=== PATIENT | male | born 1950 | race Caucasian/White ===

== ENCOUNTER 2016-10-29 10:53 | Outpatient (CLI) | payer MEDICARE, OTHER ==
[~2016-10-29] VITALS: Ht 180.3 cm; Wt 83.1 kg
[2016-10-29] MEDS ORDERED: TIMO5DRO5 OP (11:48)
[2016-10-29] MEDS ORDERED: CETI10TA17 PO (11:48)
[2016-10-29] MEDS ORDERED: OLME20TA24 PO (11:48)
[2016-10-29 11:54] VITALS: BP 119/71
== END 2016-10-29 12:18 | disposition home or self-care (01) ==
LOC: PREOP 10:53
PROVIDERS: ATTEND Urology
DX: Z01.818 Encounter for other preprocedural examination (principal); Z11.2 Encounter for screening for other bacterial diseases; N20.1 Calculus of ureter
CPT/HCPCS: 87081

== ENCOUNTER 2016-10-31 06:58 | Day surgery (SDC) | payer MEDICARE, OTHER ==
[~2016-10-31] VITALS: Ht 180.3 cm; Wt 83.1 kg
[~2016-10-31 06:58] MED LIST: CETI10TA17 PO; OLME20TA24 PO; TIMO5DRO5 OP
[2016-10-31 07:00] VITALS: BP 115/63
--- NOTE | 2016-10-31 07:06 | Progress Note-Pre Operative ---
Pre-Operative Progress Note H&P Reviewed The H&P was reviewed, patient examined and no changes noted. Date Seen by Provider: Oct 31, 2016 Time Seen by Provider: 07:06 Date H&P Reviewed: Oct 31, 2016 Time H&P Reviewed: 07:06 Pre-Operative Diagnosis: LT URETERAL STONE BENJY ARELLANO MD Oct 31, 2016 7:06 am
[2016-10-31] MEDS ORDERED: CATHETER FLUSH 10 ML SYR IV PRN (07:30)
[2016-10-31] MEDS ORDERED: cefTRIAXone 1 GM/NS 50 ML IVPB IV ONE ×2 (07:30)
[2016-10-31] MEDS: LACTATED RINGERS 1,000 ML IV PRN ×2 (07:55→10:50)
--- NOTE | 2016-10-31 08:00 | Diagnostic Imaging Report ---
INDICATION: Preop left ESWL. KUB obtained at 8:00 hours a.m. There is no previous study for comparison. The abdominal bowel gas pattern is unremarkable. There are no definitive calculi overlying the renal shadows although there is partial obscuration due to overlying stool and bowel gas. There are surgical clips and sutures in the pelvis. Bony structures appear unremarkable. IMPRESSION: There is some residual stool in the colon but no overt bowel obstruction. There are postop changes in the pelvis. There are no overt radiopaque calculi. Dictated by: Dictated on workstation # [id number]
[2016-10-31] MEDS ORDERED: LACTATED RINGERS 1,000 ML IV ONE (08:26)
[2016-10-31] MEDS ORDERED: LIDOCAINE PF 2% 5 ML (XYLOCAINE) VIAL ONE (08:26)
[2016-10-31] MEDS ORDERED: proPOfol 200 MG/20 ML (DIPRIVAN) VIAL IV ONE (08:26)
[2016-10-31] MEDS ORDERED: SEVOFLURANE (ULTANE) 15 ML INHAL SOLN ONE (08:26)
[2016-10-31] MEDS ORDERED: fentaNYL INJECTION 100 MCG/2 ML AMP ONE (08:27)
[2016-10-31] MEDS ORDERED: MIDAZOLAM 2 MG/2 ML (VERSED) VIAL ONE (08:28)
--- NOTE | 2016-10-31 10:19 | Progress Note-Post Operative ---
Post-Operative Progess Note Surgeon (s)/Acreage Reporter (s) Surgeon BENJY ARELLANO MD Acreage Reporter: N/A Pre-Operative Diagnosis LT URETERAL STONE Post-Operative Diagnosis SAME Procedure & Operative Findings Date of Procedure 10/31/16 Procedure Performed/Findings CYSTO, LT URETEROSCOPY, INSERTION OF LT URETERAL CATHETER FOR RETROGRADE UROGRAM , AND LT ESWL FOR LT DISTAL URETERAL STONE Anesthesia Type GENERAL Estimated Blood Loss Estimated blood loss (mL): N/A Specimens/Packing Specimens Removed N/A Packing: N/A BENJY ARELLANO MD Oct 31, 2016 10:19 am
--- NOTE | 2016-10-31 10:21 | Discharge Inst-Urology ---
Discharge Inst-Urology Discharge Medications New, Converted, or Re-newed RX: RX on Chart Patient Instructions/Follow Up Plan Patient to make appointment to been seen in office in [facility] OP clinic Sunday 11/[address] Post ESWL instructions Increase oral fluids for 48 hours and then as needed. Diet and Activity as tolerated. If questions or concerns contact your physician Or seek help at emergency department. BENJY ARELLANO MD Oct 31, 2016 10:21
[2016-10-31 11:35] VITALS: BP 113/67
--- NOTE | 2016-10-31 11:37 | OPERATIVE REPORT ---
PROCEDURE PHYSICIAN: BENJY ARELLANO DATE OF PROCEDURE: 10/31/2016 PREOPERATAIVE DIAGNOSIS: Left distal ureteral stone. POSTOPERATIVE DIAGNOSIS: Left distal ureteral stone. OPERATION PERFORMED: 1. Cystoscopy. 2. Left ureteroscopy. 3. Insertion of left ureteral catheter. 4. Retrograde urogram. 5. Left ESWL. ANESTHESIA: General. COMPLICATIONS: None. PROCEDURE: Under satisfactory general anesthesia, the patient in lithotomy position, the genitalia were prepped and draped in the usual sterile fashion. A 21-Ivorian cystoscope met resistance from a distal submeatal stricture. He responded to a 5-Ivorian cystoscope. The urethra was normal. The prostate was nonobstructing. There was a mild median bar. The bladder revealed some trabeculations. Ureteric orifices normal in shape, site and configuration with clear efflux, somewhat sluggish on the left side. Using the Foroblique lens, I dilated the left ureteral orifice, intramural portion to accommodate a 6.9-Ivorian semirigid ureteroscope. However, there was quite a bit of irritation, edema and hyperemia on the wall of the ureter just distal to the stone which did not allow me to see the stone or to pass the ureteroscope safely to the stone. So I discontinued further attempt, removed the ureteroscope. Reinserted the cystoscope, passed a 6-Ivorian ureteral catheter past the stone into the kidney. Then a 16-Ivorian José catheter was inserted after removing the cystoscope and both catheters were taped to each other and the patient was moved to the ESWL table. We visualized the stone, delivered 1000 shocks at KV of 6. We had a hard time seeing the stone at that time, so I backed up the ureteral catheter, injected contrast. There was no filling defect visualized and complete emptying of the ureter after removing the catheter. There was what looked like a residual fragment in the distal ureter and another 1000 shocks were delivered at KV of 6 until we could not see any more calcification fluoroscopic. The patient received 30 mg of Toradol and 40 mg of Lasix IV at the end of the procedure. Catheters were removed. The procedure and anesthesia well and was sent to recovery room in stable condition. Job ID: [id number] Dictated Date: 10/31/2016 10:39:03 Service Desk Technician Date: 10/31/2016 11:19:57 / marino
[2016-10-31] MEDS ORDERED: PHENAZOPYRIDINE 100 MG (PYRIDIUM) TABLET PO ONE (12:00)
[2016-10-31] MEDS ORDERED: HYDROcodone/APAP 5 MG/325 MG (LORTAB) TAB PO PRN (12:00)
[2016-10-31 12:15] VITALS: BP 102/78
[2016-10-31] MEDS ORDERED: TAMS0.4C98 PO (12:17)
[2016-10-31] MEDS ORDERED: LEVO500T2 PO (12:17)
[2016-10-31] MEDS ORDERED: PHEN-640 PO (12:17)
[2016-10-31] MEDS ORDERED: HYDR-3874 PO (12:17)
[2016-10-31 12:50] VITALS: BP 121/70
[2016-10-31 13:10] VITALS: BP 121/70
--- NOTE | 2016-10-31 13:20 | Diagnostic Imaging Report ---
INDICATION: Postop abdominal pain. COMPARISON: Abdominal radiograph of same day at 8 a.m. FINDINGS: Multiple foci of gas are seen throughout the colon and small bowel. Nonobstructive bowel gas pattern is present. No evidence of free intraperitoneal air, though evaluation is limited on supine imaging. Metallic markers in the pelvis are compatible prior herniorrhaphy. There are also surgical clips present in the pelvis. IMPRESSION: 1. Nonobstructive but nonspecific bowel gas pattern. 2. No evidence of free intraperitoneal air, although evaluation is limited on supine imaging. Dictated by: Dictated on workstation # [id number]
== END 2016-10-31 13:10 | disposition home or self-care (01) ==
LOC: SDC 06:58
PROVIDERS: ATTEND Urology
DX: N20.1 Calculus of ureter (principal); I10 Essential (primary) hypertension; G47.33 Obstructive sleep apnea (adult) (pediatric); Z79.899 Other long term (current) drug therapy
CPT/HCPCS: 74000

== ENCOUNTER → 2019-08-27 | Outpatient (CLI) | payer MEDICARE, OTHER ==
[~2019-08-27] MED LIST changes: +HYDR-3870 PO; +LEVO500T2 PO; +PHEN-640 PO; +TMSL.4C PO
--- NOTE | 2019-08-27 18:49 | Diagnostic Imaging Report ---
PROCEDURE: CT abdomen and pelvis without contrast. TECHNIQUE: Multiple contiguous axial images were obtained through the abdomen and pelvis without the use of intravenous contrast. Auto Exposure Controls were utilized during the CT exam to meet ALARA standards for radiation dose reduction. INDICATION: Gross hematuria x4 days. Immediately post cystography. CORRELATION STUDY: None. FINDINGS: LOWER THORAX: Clear. LIVER: Unremarkable. GALLBLADDER: Present and unremarkable. No bile duct dilatation. SPLEEN: Unremarkable. PANCREAS: Unremarkable. ADRENAL GLANDS: Unremarkable. KIDNEYS: There is a lobulated appearance about the renal parenchyma of both kidneys. Slightly nodular areas of contour change are present. A hypodense mass in the inferior pole of the right kidney, compatible with cyst, at 4 cm in size. 14 mm rounded hyperdense mass in the superior pole of the right kidney is present with Hounsfield unit at 49. No calcification of the collecting system. No obstructive uropathy. ABDOMINAL AORTA: Moderate aortoiliac wall calcification, nonaneurysmal. A few small but non pathologically enlarged central retroperitoneal lymph nodes. GASTROINTESTINAL TRACT: Stomach is relatively collapsed. No small bowel dilatation. Mild severity of fecal retention of stool throughout the colon. Extensive colonic diverticulosis is present without evidence for acute diverticulitis. Normal appendix. URINARY BLADDER: Unremarkable. REPRODUCTIVE: Prostate gland is not well visualized, may be absent. OSSEOUS STRUCTURES: Advanced thoracolumbar degenerative changes including disc space narrowing, bridging osteophytes, and hypertrophic facet arthropathy. Scattered areas of disc space narrowing. Various degrees of spinal canal and foraminal stenosis are present. This appears to be fairly significant in some areas. OTHER: Postop changes of left inguinal hernia repair. IMPRESSION: 1. Lobulated appearance about the kidneys with presence of prominent cyst in the inferior pole of the right kidney. 2. No evidence for nephroureterolithiasis or obstructive uropathy. 3. Small hyperdense mass in the superior pole of the right kidney. While it could potentially reflect a hemorrhagic cyst, solid mass is not excluded. If patient is clinically able, correlation with MRI would be recommended. Alternatively, contrast-enhanced CT imaging versus renal ultrasound would be recommended. 4. Extensive colonic diverticulosis. Dictated by: Dictated on workstation # [id number]
== END ==
LOC: RAD 14:41
PROVIDERS: ATTEND Urology
DX: N28.1 Cyst of kidney, acquired (principal); N28.9 Disorder of kidney and ureter, unspecified; K57.90 Diverticulosis of intestine, part unspecified, without perforation or abscess without bleeding; R31.0 Gross hematuria
CPT/HCPCS: 74176

== ENCOUNTER → 2019-09-11 | Outpatient (CLI) | payer MEDICARE, OTHER ==
[~2019-09-11] MED LIST changes: +HOLD METFORMIN - RECEIVED CONTRAST 20 ML VIAL IV SCH; +IOHEXOL 350 MG/ML 100 ML (OMNIPAQUE 350) VIAL IV ONE; +NS 100 ML (IVPB) BAG IV ONE
--- NOTE | 2019-09-11 10:01 | Diagnostic Imaging Report ---
PROCEDURE: CT abdomen with and without contrast. TECHNIQUE: Multiple contiguous axial CT images of the abdomen were obtained prior to and after intravenous administration of iodinated contrast. Auto Exposure Controls were utilized during the CT exam to meet ALARA standards for radiation dose reduction. INDICATION: Renal masses. Correlation is made with the CT study from 08/27/2019. The lung bases are clear. The liver and gallbladder are unremarkable. No biliary ductal dilatation is seen. The pancreas and spleen are unremarkable apart from a 9 mm cyst within the upper portion of the spleen. There is no adrenal mass. The right kidney again contains a simple appearing cyst in the lower pole approximately 4 cm in size. Hyperdense lesion upper pole right kidney does not show significant contrast enhancement. This could represent a hemorrhagic cyst. Continued followup would be recommended. No definite solid lesion is seen. There is some lobulation to the kidneys. No calculi or hydronephrosis is identified. Aorta is non-aneurysmal. No central retroperitoneal or mesenteric lymphadenopathy is seen. Visualized bowel loops are unremarkable. There is no ascites. IMPRESSION: Renal cysts. There is also a probable hemorrhagic cyst in the upper pole right kidney. Continued followup to confirm stability could be performed. No other significant abnormality is detected. Dictated by: Dictated on workstation # [id number]
== END ==
LOC: RAD 08:47
PROVIDERS: ATTEND Urology
DX: N28.1 Cyst of kidney, acquired (principal)
CPT/HCPCS: 74170